=== PATIENT | male | born 1950 | race Caucasian/White ===

== ENCOUNTER 2017-05-23 08:48 | Emergency (ER) | payer MEDICARE ==
[2017-05-23 09:37] VITALS: BP 154/94
--- NOTE | 2017-05-23 10:34 | UC ---
Lower Extremity/Ankle HPI - HPI Summary HPI Summary: 66 yo male with bilateral toe rash x 3 weeks It has remained unchanged minimal pain some swelling no fever no recent illness no new meds no trauma has not been outside for prolonged time no DM non smoker - History of Current Complaint Chief Complaint: UCLowerExtremity Stated Complaint: BILATERAL FOOT PAIN Time Seen by Provider: 05/23/17 10:09 Hx Obtained From: Patient Onset/Duration: Gradual Onset, Lasting Weeks - 3 Severity Initially: Mild Severity Currently: Mild Pain Intensity: 2 Pain Scale Used: 0-10 Numeric Aggravating Factor(s): Nothing Alleviating Factor(s): Nothing Able to Bear Weight: Yes - Allergies/Home Medications Allergies/Adverse Reactions: Allergies Allergy/AdvReac Type Severity Reaction Status Date / Time No Known Allergies Allergy Verified 05/23/17 09:20 Home Medications: Home Medications Ibuprofen TAB* [Motrin TAB* 800 MG] 800 mg PO Q24H PRN 05/23/17 [History Confirmed 05/23/17] Omeprazole CAP* [Prilosec CAP* 20 MG] 40 mg PO EVERY OTHER DAY 05/23/17 [ History Confirmed 05/23/17] Ranitidine HCl 150 mg PO EVERY OTHER DAY 05/23/17 [History Confirmed 05/23/17] PMH/Surg Hx/FS Hx/Imm Hx Previously Healthy: Yes Cardiovascular History: Hypertension GI/ History: Gastroesophageal Reflux - Surgical History Surgical History: Yes Surgery Procedure, Year, and Place: left shoulder last was 12/16/16 - Family History Known Family History: Positive: Hypertension Negative: Cardiac Disease, Diabetes - Social History Alcohol Use: None Substance Use Type: None Smoking Status (MU): Never Smoked Tobacco Review of Systems Constitutional: Negative Skin: Rash Eyes: Negative ENT: Negative Respiratory: Negative Cardiovascular: Negative Gastrointestinal: Negative Genitourinary: Negative Motor: Negative Neurovascular: Negative Musculoskeletal: Negative Neurological: Negative Psychological: Negative Is Patient Immunocompromised?: No All Other Systems Reviewed And Are Negative: Yes Physical Exam Triage Information Reviewed: Yes Appearance: Well-Appearing, No Pain Distress, Well-Nourished Vital Signs: Initial Vital Signs Temp 99.3 F 05/23/17 09:04 Pulse 82 05/23/17 09:04 Resp 16 05/23/17 09:04 BP 154/94 05/23/17 09:04 Pulse Ox 98 05/23/17 09:04 Vital Signs Reviewed: Yes Eyes: Positive: Conjunctiva Clear ENT: Positive: Hearing grossly normal, TMs normal. Negative: Nasal congestion, Nasal drainage, Trismus, Muffled voice, Hoarse voice Neck: Positive: Supple, Nontender Respiratory: Positive: Lungs clear, Normal breath sounds, No respiratory distress Cardiovascular: Positive: RRR - with occasional extrasystoles, No Murmur. Negative: Tachycardia, Bradycardia Musculoskeletal: Positive: ROM Intact, No Edema Neurological: Positive: Alert Skin Exam: Other - toes with purpuric lesions/no bullae/skin intact/ good cap refill/rash not tender Lower Extremity Course/Dx - Differential Dx/Diagnosis Provider Diagnoses: toe purpura. ? cold related injury vs vasculitis vs other Discharge - Discharge Plan Condition: Stable Disposition: HOME Patient Education Materials: Purpura (ED) Referrals: Wilver Hampton MD [Primary Care Provider] - As Soon As Possible Additional Instructions: blood work is pending this does not appear infectious this may be due to jimenez bite avoid cold exposure blood work is pending this needs to be followed by your MD next week New or worsening symptoms go to the ER
[2017-05-23 14:05] LABS: ABS Basophils 0 10^3/ul (0-0.2); ABS Eosinophils 0.1 10^3/ul (0-0.6); ABS Lymphocytes 1.2 10^3/ul (1.0-4.8); ABS Monocytes 0.5 10^3/ul (0-0.8); ABS Neutrophils 2.1 10^3/ul (1.5-7.7); ABS Nucleated RBC 0 10^3/ul; Eosinophil % 2.2 % (0-6); Hematocrit 41 % (42-52); Hemoglobin 13.9 g/dl (14.0-18.0); Lymphocyte % 31.6 % (25-47); Mean Corpuscular HGB Conc 34 g/dl (31-36); Mean Corpuscular Hemoglobin 29 pg (27-31); Mean Corpuscular Volume 86 fL (80-94); Mean Platelet Volume 9 um3 (7.4-10.4); Nucleated Red Blood Cells % 0; Platelet Count 219 10^3/ul (150-450); Red Blood Count 4.78 10^6/ul (4.0-5.4); Red Cell Distribution Width 13 % (10.5-15); White Blood Count 3.9 10^3/ul (3.5-10.8)
== END 2017-05-23 10:48 | disposition home or self-care (01) ==
LOC: UCCORT 08:48
DX: D69.2 Other nonthrombocytopenic purpura (principal); K21.9 Gastro-esophageal reflux disease without esophagitis; I10 Essential (primary) hypertension
CPT/HCPCS: 36415; 85025; 85652; 99211; G0463

== ENCOUNTER 2018-10-13 12:26 | Day surgery (SDC) | payer MEDICARE ==
[~2018-10-13 12:26] MED LIST: Buffered Lidocaine 1% SYRIN* 1 ML/SYRINGE INTRADERM ONE; Lactated Ringers 1000 ML Bag* 1,000 ML IV SCH
[2018-10-13] MEDS ORDERED: Buffered Lidocaine 1% SYRIN* 1 ML/SYRINGE INTRADERM ONE (12:54)
[2018-10-13] MEDS ORDERED: ceFAZolin 2 GM PREMIX in ORs 2 GM/50 ML BAG ONE (12:54)
[2018-10-13] MEDS ORDERED: Midazolam* 1 MG/ML 2 ML VIAL (2 MG) ONE (13:12)
[2018-10-13] MEDS ORDERED: fentaNYL* 50 MCG/ML 2 ML VIAL (100 MCG VIAL) ONE (13:12)
[2018-10-13] MEDS ORDERED: Propofol* 10 MG/ML 20 ML BTL ONE (13:13)
[2018-10-13] MEDS ORDERED: Lidocain 1% EPI 1:100,000 * 30 ML MDV ONE (13:55)
[2018-10-13] MEDS ORDERED: Bupivacaine 0.25% SDV PF* 10 ML VIAL INJ ONE (13:56)
[2018-10-13] MEDS ORDERED: Mineral Oil Sterile, TOPICAL* 25 ML BTL ONE (14:07)
[2018-10-13] MEDS ORDERED: fentaNYL* 50 MCG/ML 2 ML VIAL (100 MCG VIAL) IV PRN (14:09)
[2018-10-13] MEDS ORDERED: Ibuprofen TAB* 600 MG PO PRN (14:09)
[2018-10-13] MEDS ORDERED: oxyCODONE/Acetamin 5/325 MG* TAB PO PRN (14:09)
[2018-10-13] MEDS ORDERED: Acetaminophen TAB* 325 MG PO PRN (14:09)
[2018-10-13] MEDS ORDERED: Ondansetron INJ* 2 MG/ML VIAL IV PRN (14:09)
[2018-10-13] MEDS ORDERED: Naloxone* 0.4 MG/ML 1 ML VIAL IV PRN (14:09)
[2018-10-13 16:42] VITALS: BP 157/79
== END 2018-10-13 16:30 | disposition home or self-care (01) ==
LOC: OR 12:26
PROVIDERS: ATTEND Plastic Surgery
DX: C43.62 Malignant melanoma of left upper limb, including shoulder (principal); I10 Essential (primary) hypertension; M19.90 Unspecified osteoarthritis, unspecified site; K21.9 Gastro-esophageal reflux disease without esophagitis; Z88.8 Allergy status to other drugs, medicaments and biological substances
CPT/HCPCS: 88305; A9270-GY; J0690; J2250; J2704; J3010; J3490